=== PATIENT | male | born 1955 | race Caucasian/White ===

== ENCOUNTER 2017-09-01 08:29 | Day surgery (SDC) | payer BC ==
[~2017-09-01 08:29] MED LIST: LIDOCAINE HCL 1% MPF SOL ONE; PROPOFOL 500 MG/50 ML EMU IV ONE
[2017-09-01 09:54] VITALS: PULSE 63
[2017-09-01 10:05] VITALS: BP 145/78; RESP 18; TEMP 97.6; O2SAT 96
== END 2017-09-01 10:25 | disposition home or self-care (01) ==
LOC: SURG 08:29
PROVIDERS: ATTEND Surgery
DX: Z12.11 Encounter for screening for malignant neoplasm of colon (principal); E11.9 Type 2 diabetes mellitus without complications; D12.4 Benign neoplasm of descending colon
CPT/HCPCS: 82962; 99001; J2001; J2704